=== PATIENT | female | born 1930 | race American Indian/Alaskan Native ===

== ENCOUNTER 2016-10-11 15:40 | Outpatient (CLI) | payer MEDICARE ==
[2016-10-11 16:35] LABS: Blood Urea Nitrogen 12 mg/dL (7-17)
--- NOTE | 2016-10-11 17:35 | Magnetic Resonance Report ---
FINAL REPORT PROCEDURE: MR BRAIN WO/W CON TECHNIQUE: Magnetic resonance imaging of the brain was performed before and after the IV injection of paramagnetic contrast. HISTORY: Right-sided focal numbness. COMPARISON: No prior studies are available for comparison. FINDINGS: Skull base and calvarium: Normal. Paranasal sinuses: The visualized paranasal sinuses are clear. Cerebellum: No evidence of hemorrhage, ischemia or mass . Brainstem: No evidence of hemorrhage, ischemia or mass . Cerebrum: No evidence of hemorrhage, ischemia or mass. Abnormal gradient low signal intensity in the basal ganglia likely calcification. Moderate periventricular white matter low attenuation that does not exhibit abnormal diffusion. Slight abnormal signal intensity in the midbrain/mckinley, best seen on T2 images. No associated abnormal restricted diffusion. Ventricles: Prominence of the ventricles likely in proportion to the degree of atrophy. Pituitary gland and sella: Normal. Globes and orbits: Normal. Vasculature: Normal arterial and venous flow voids. Right vertebral artery slightly hypoplastic. Abnormal enhancement: None. Other: None. IMPRESSION: No MRI restricted diffusion to suggest acute ischemia. Atrophy. Ventricles are prominent but felt to be in proportion to the degree of atrophy. White matter change likely chronic small vessel ischemic change. Also consider demyelination, infectious/inflammatory process, less likely can be seen with migraines. Area of abnormal signal intensity seen in the midbrain/mckinley, most evident on T2 imaging. Consider this could be lacune, on T2 has signal intensity close to CSF. Consider further evaluation and followup as felt to be warranted clinically.
== END 2016-10-11 15:41 | disposition home or self-care (01) ==
LOC: MRI 15:40
PROVIDERS: ATTEND Internal Medicine
DX: R20.2 Paresthesia of skin (principal)
CPT/HCPCS: 36415; 70553; 82565; 84520; A9577

== ENCOUNTER 2016-10-11 17:14 | Emergency (ER) | payer MEDICARE ==
--- NOTE | 2016-10-11 20:48 | Emergency Department Report ---
ED General Adult HPI - General Chief complaint: Neuro Symptoms/Deficit Stated complaint: POSITIVE BRAIN MRI/SENT BY DR PEDERSON Time Seen by Provider: 10/11/16 20:31 Source: patient, family Mode of arrival: Ambulatory Limitations: No Limitations - History of Present Illness Initial comments: This is an 86-year-old female, previously unknown to me. Her primary care doctor is Dr. Rodriguez. Has a past medical history of hypertension, and takes aspirin on a daily basis. She presents to the ER after having an outpatient MRI. The MRI was performed today. MRI demonstrated no acute ischemia. Atrophy is noted. White matter changes were also noted, and consideration for demyelination, infectious, inflammatory changes were also suggested. There is an area of abnormal signal intensity seen in the mid brain/mckinley, more evident on T2 imaging. Consider this could be lacunar. Patient's complaints is intermittent numbness in the right postauricular region , and on the right medial lower extremity from the distal foot and then proximal to the knee. This has been going on for the past few days. It waxes and wanes. It has no exacerbating or relieving factors. The patient denies headache, neck pain, chest pain, abdominal pain, shortness of breath, irritative and obstructive urinary symptoms. There is no extremity weakness. There is no ataxia. Currently patient is asymptomatic. -: Gradual Location: head, right, lower extremity Severity scale (0 -10): 0 Consistency: intermittent Improves with: none Worsens with: none Associated Symptoms: denies: confusion, chest pain, cough, diaphoresis, fever/ chills, headaches, loss of appetite, malaise, nausea/vomiting, rash, seizure, shortness of breath, syncope, weakness - Related Data Home Medications Medication Instructions Recorded Confirmed Last Taken Aspirin 81 mg PO QDAY 10/11/16 10/11/16 Unknown Losartan 50 mg PO QDAY 10/11/16 10/11/16 Unknown Previous Rx's Medication Instructions Recorded Last Taken Type Simvastatin [Zocor TAB] 20 mg PO QHS #30 tablet 10/12/16 Unknown Rx Allergies Allergy/AdvReac Type Severity Reaction Status Date / Time No Known Allergies Allergy Unverified 10/11/16 15:41 ED Review of Systems ROS: Stated complaint: POSITIVE BRAIN MRI/SENT BY DR PEDERSON Other details as noted in HPI Constitutional: denies: malaise Eyes: denies: vision change ENT: denies: epistaxis Respiratory: denies: cough Cardiovascular: denies: chest pain Gastrointestinal: denies: abdominal pain Genitourinary: denies: dysuria Musculoskeletal: denies: arthralgia Skin: denies: lesions Neurological: numbness. denies: weakness ED Past Medical Hx - Past Medical History Hx Hypertension: Yes Hx Diabetes: Yes - Surgical History Past Surgical History?: No - Social History Smoking Status: Current Every Day Smoker Substance Use Type: None - Medications Home Medications: Home Medications Medication Instructions Recorded Confirmed Last Taken Type Aspirin 81 mg PO QDAY 10/11/16 10/11/16 Unknown History Losartan 50 mg PO QDAY 10/11/16 10/11/16 Unknown History Simvastatin [Zocor TAB] 20 mg PO QHS #30 tablet 10/12/16 Unknown Rx ED Physical Exam - General Limitations: No Limitations General appearance: alert, in no apparent distress - Head Head exam: Present: atraumatic, normocephalic - Eye Eye exam: Present: normal appearance, PERRL, EOMI. Absent: nystagmus - ENT ENT exam: Present: normal exam, normal orophraynx, mucous membranes moist, TM's normal bilaterally, normal external ear exam - Neck Neck exam: Present: normal inspection, full ROM. Absent: tenderness, meningismus - Respiratory Respiratory exam: Present: normal lung sounds bilaterally. Absent: respiratory distress, wheezes, rales, rhonchi, stridor, chest wall tenderness - Cardiovascular Cardiovascular Exam: Present: regular rate, normal rhythm, normal heart sounds. Absent: bradycardia, tachycardia, irregular rhythm, systolic murmur, diastolic murmur, rubs, gallop - GI/Abdominal GI/Abdominal exam: Present: soft, normal bowel sounds. Absent: distended, tenderness, guarding, rebound, rigid, pulsatile mass - Extremities Exam Extremities exam: Present: normal inspection, full ROM, normal capillary refill. Absent: tenderness, pedal edema, joint swelling, calf tenderness - Back Exam Back exam: Present: normal inspection, full ROM. Absent: tenderness, CVA tenderness (R), CVA tenderness (L), muscle spasm, paraspinal tenderness, vertebral tenderness - Neurological Exam Neurological exam: Present: alert, oriented X3 (patient is able to add, subtract , multiply. Alert and oriented 3.), normal gait, other (Extraocular movements intact. Tongue midline. No facial droop. Facial sensation intact to light touch in the V1, V2, V3 distribution bilaterally. 5 and 5 strength in 4 extremities.. Sensation is intact to light touch in 4 extremities.). Absent: motor sensory deficit (sensation intact to light touch, pinprick, proprioception and 4 extremity is. Downgoing plantar reflexes bilaterally.) - Psychiatric Psychiatric exam: Present: normal affect, normal mood - Skin Skin exam: Present: warm, dry, intact, normal color. Absent: rash ED Course Vital Signs 10/11/16 10/11/16 10/11/16 17:36 18:33 18:46 Temperature 98.1 F Pulse Rate 73 62 Respiratory 20 20 20 Rate Blood Pressure 171/76 Blood Pressure 147/69 [Left] O2 Sat by Pulse 100 98 98 Oximetry 10/11/16 10/11/16 10/11/16 19:30 21:15 22:00 Temperature Pulse Rate 68 61 60 Respiratory 18 18 18 Rate Blood Pressure Blood Pressure 158/76 167/66 122/60 [Left] O2 Sat by Pulse 96 97 97 Oximetry 10/11/16 10/12/16 23:00 00:36 Temperature Pulse Rate 66 64 Respiratory 18 18 Rate Blood Pressure Blood Pressure 132/64 130/62 [Left] O2 Sat by Pulse 99 97 Oximetry - Reevaluation(s) Reevaluation #1: 10/11/16 21:01 Differential diagnosis: Transient ischemic attack, nonspecific polyneuropathy, multiple sclerosis, pneumonia, urinary tract infection, electrolyte imbalance Assessment and plan: 86-year-old female with nonspecific neurologic symptoms, now resolved. She has a GCS of 15, with an NIH score of 0. Walks with a steady gait. MRI performed earlier on today demonstrates nonspecific findings. Patient has no neck pain or neck stiffness. Clinically not consistent with meningitis or acute infectious process. I don't believe she requires admission to the hospital at this time. Urinalysis, chest x-ray, EKG, laboratory studies pending. We will discuss with neurology. Reevaluation #2: 10/11/16 21:49 case d/w Dr Gaspar of [facility]. he has evaluated the MRI he agrees that the patient most likely had a cva he recommends a ct angio to evaluate for basilar stenosis recommends atorvastatin 40 mg q hs or simvastatin 20 qhs doesnt think patient requires tte or nati at this point thinks this can be done electively as an outpatient 10/11/16 21:51 10/11/16 21:51 Reevaluation #3: 10/12/16 00:44 CT angiograms are essentially negative. Rediscussed with Dr. Baires. Recommends a statin. Recommends target outpatient blood pressure less than 140/ 90. Patient will be discharged with statin therapy. Counseled to follow up with outpatient primary care, palpation neurology. Return precautions are extensively reviewed. ED Medical Decision Making - Lab Data Result diagrams: 10/11/16 20:50 10/11/16 20:50 Vital Signs 10/11/16 10/11/16 10/11/16 17:36 18:33 18:46 Temperature 98.1 F Pulse Rate 73 62 Respiratory 20 20 20 Rate Blood Pressure 171/76 Blood Pressure 147/69 [Left] O2 Sat by Pulse 100 98 98 Oximetry 10/11/16 19:30 Temperature Pulse Rate 68 Respiratory 18 Rate Blood Pressure Blood Pressure 158/76 [Left] O2 Sat by Pulse 96 Oximetry - EKG Data 10/11/16 21:30 Sinus bradycardia, 59 bpm, prolonged QTC of 374 ms, abnormal EKG, not consistent with STEMI, nonspecific T-wave abnormality. - Radiology Data Radiology results: report reviewed interpreted by me: Chest x-ray demonstrates chronic findings. No acute disease. MRI report reviewed and appreciated. Critical care attestation.: If time is entered above; I have spent that time in minutes in the direct care of this critically ill patient, excluding procedure time. ED Disposition Clinical Impression: Numbness, Hypertension Disposition: DISCHARGED TO HOME OR SELFCARE Is pt being admited?: No Does the pt Need Aspirin: No Condition: Good Instructions: Hypertension (ED), Transient Ischemic Attack (ED) Additional Instructions: Continue current outpatient medications. Take the simvastatin medication as directed. Follow-up with the primary care doctor or neurology specialist within the next week. Dr. Lozada is a local neurology specialist. It is very important to closely follow up with outpatient primary care doctor for adjustment of her blood pressure medication. As per the recommendation of Dr. Baires, the [facility], your blood pressure should ideally be less than 140/90. Long-term complications of blood pressure include stroke, heart attack, disability, , paralysis, loss of quality of life. Return to the ER right away with chest pain, shortness of breath, nausea, vomiting, diarrhea, extremity weakness, extremity numbness, change in mental status. Prescriptions: Simvastatin [Zocor TAB] 20 mg PO QHS #30 tablet Referrals: PRIMARY CARE, [Primary Care Provider] - 3-5 Days FRANCY RODRIGUEZ MD [Staff Physician] - 3-5 Days ISIS LOZADA MD [Staff Physician] - 3-5 Days
[2016-10-11 21:10] LABS: Hematocrit 44.1 % (30.3-42.9); Hemoglobin 14.4 gm/dl (10.1-14.3); Mean Corpuscular HGB Conc 33 % (30-34); Mean Corpuscular Hemoglobin 29 pg (28-32); Mean Corpuscular Volume 90 fl (79-97); Platelet Count 195 K/mm3 (140-440); Red Blood Count 4.92 M/mm3 (3.65-5.03); Red Cell Distribution Width 14.3 % (13.2-15.2); White Blood Count 12.4 K/mm3 (4.5-11.0)
[2016-10-11 21:16] LABS: INR 1.02 (0.87-1.13); Partial Thromboplastin Time 24.6 Sec. (24.2-36.6)
[2016-10-11 21:23] LABS: Creatine Kinase MB 6.5 ng/mL (0.0-4.0)
[2016-10-11 21:25] LABS: Blood Urea Nitrogen 12 mg/dL (7-17); Carbon Dioxide 26 mmol/L (22-30); Chloride 103.5 mmol/L (98-107); Creatine Kinase 269 units/L (30-135); Glucose 95 mg/dL (65-100); Sodium 142 mmol/L (137-145)
[2016-10-11 21:28] LABS: Bacteria,Urine 2+ /HPF (Negative); Bilirubin,Urine NEG (Negative); Blood,Urine NEG (Negative); Ketones,Urine NEG (Negative); Leukocyte Esterase,Urine NEG (Negative); Mucus,Urine FEW /HPF; Nitrite,Urine NEG (Negative); Protein,Urine <15 mg/dL mg/dL (Negative); Urobilinogen,Urine < 2.0 mg/dL (<2.0); WBC,Urine < 1.0 /HPF (0.0-6.0)
[2016-10-11 21:30] LABS: Anion Gap 17 mmol/L
[2016-10-11 21:49] LABS: Alanine Aminotransferase 13 units/L (7-56); Albumin 3.4 g/dL (3.9-5); Alkaline Phosphatase 92 units/L (35-129); Bilirubin,Total 0.2 mg/dL (0.1-1.2); Total Protein 6.9 g/dL (6.3-8.2)
[2016-10-11 21:50] LABS: Bilirubin,Direct < 0.2 mg/dL (0-0.2)
--- NOTE | 2016-10-11 21:51 | Admit Criteria Form ---
Admission Criteria Documentation: NEUROLOGY GRG Clinical Indications for Admission to Inpatient Care (Place ' X' for any and all applicable criteria): Hospital admission is needed for appropriate care of the patient because of ANY ONE of the following: [ ]I. New-onset or worsening altered mental status remaining after emergency or observation level care (as appropriate) (9)(10)(11) [ ]II. Severe RIPPLER infections or inflammatory conditions, including ANY ONE of the following(1)(2)(3): [ ]a) Intracranial abscess [ ]b) Spinal abscess or myelitis [ ]c) Tuberculous or other nonbacterial, nonviral RIPPLER infection(8) [ ]III. Encephalitis(1)(2)(3) [ ]IV. Status epilepticus or repetitive seizures not controlled with emergent treatment [A] (7)(8) [ ]V. Transient alteration in consciousness with high-risk etiology; examples include (12)(13): [ ]a) Cardiovascular source [ ]b) Cataplexy [ ]. Cerebral aneurysm requiring ANY ONE of the following(14): [ ]a) IV antihypertensives or vasoactive agents [ ]b) Sedation and analgesia for suspected leak [ ]c) Need for external ventricular drainage and cerebral perfusion pressure monitoring [ ]d) Emergent evaluation to determine need for surgical clipping or endovascular coiling by interventional radiology. If surgery is required ( Also use Craniotomy, Supratentorial, for Surgery of Bleeding Intracranial Aneurysm (for bleeding aneurysm) or Craniotomy, Supratentorial (for nonbleeding aneurysm) as appropriate. [ ]VII. Altered mental status that is severe or persistent(16) [ ]VIII New-onset severe neurologic findings requiring inpatient care; examples include: [ ]a) Papilledema [ ]b) Cerebral edema [ ]c) Mass effect on imaging [ ]IX. New-onset severe neurologic symptom requiring inpatient care indicated by ANY ONE of the following: [ ]a) Aphasia(15) [ ]b) Weakness (grade 3 or less) [ ]c) Paralysis (eg, hemiplegia) [ ]d) Spasticity(16) [ ]e) Ataxia(17) [ ]f) Amnesia(18) [ ]g) Involuntary movements(19) [ ]h) Vertigo [ ]i) Other severe neurologic symptom not treatable at alternative level of care (eg, observation care) [ ]X. Guillain-Columbus syndrome(20) [ ]XI. Myasthenia gravis crisis or inpatient monitoring need as indicated by ANY ONE of the following(21): [ ]a) Inadequate airway protection [ ]b) Respiratory insufficiency requiring intubation or inpatient. monitoring [ ]c) Progressive dysphagia with failure to thrive [ ]d) Intensive treatment (eg, course of plasmapheresis) with inadequate outpatient situation to monitor patients status [ ]XII. Multiple sclerosis or other acute demyelinating disease requiring inpatient care as indicated by ANY ONE of the following (22)(23): [ ]a) Acute severe deterioration requiring inpatient treatment (eg, IV steroids, plasmapheresis, close observation) [ ]b) Acute complication requiring inpatient care (eg, sepsis, severe decubitus, aspiration) [ ]XIII. Intracranial hypertension (eg, pseudotumor cerebri) requiring inpatient care (eg, acute visual loss, inadequate oral intake) (24) [ ]XIV.Parkinson disease requiring inpatient care (Also use Optimal Recovery Care Criteria or General Recovery Criteria as appropriate) indicated by ANY ONE of the following(25): [ ]a) Infection (eg, aspiration pneumonia) not treatable at alternative level of care [ ]b) Volume depletion not responsive to emergency and observation care treatment (as appropriate) [ ]c) Life-threatening agitation or psychotic behavior not treatable on emergency, observation care, or alternative level (eg, residential) basis [ ]d) Severe medication withdrawal effects (eg, freezing, neuroleptic malignant syndrome) not responsive to emergency and observation care treatment (as appropriate) [ ]e) Other severe manifestation not treatable at alternative level of care [ ]XV.Amyotrophic lateral sclerosis with inpatient care needs as indicated by ANY ONE of the following(26): [ ]a) Acute complications requiring inpatient care (Use Optimal Recovery Care Criteria or General Recovery Criteria as appropriate); examples include: [ ]i) Aspiration pneumonia [ ]ii) Sepsis [ ]b) Dehydration or hypovolemia (not responsive to emergency and observation care treatment as appropriate) AND artificial support desired [ ]c) Inadequate airway protection AND artificial support desired [ ]d) Severe ventilatory insufficiency AND artificial support desired [ ]XVI.Severe myopathy, neuropathy, or other neuromuscular disease as indicated by ANY ONE of the following: [ ]a) New-onset severe diffuse weakness (eg, strength 3/5 or less) [ ]b) Severe dysphagia [ ]c) Dyspnea at rest or with minimal exertion (new) [ ]d) Inadequate airway protection [ ]e) Inadequate ventilation as indicated by ANY ONE of the following : [ ]i) Partial pressure of carbon dioxide greater than 44 mm Hg (5.9 kPa) (new) [ ]ii) Reduced peak expiratory flow rate (new) [ ]iii) Vital capacity less than 50% of predicted ( less than 15 mL/kg) [ ]iv) Peak inspiratory force less negative than -30 cm H20 (-2942 Pa) [ ]XVII.Complications of congenital or degenerative disease (eg, infection, seizures, dehydration, injury) not responsive to emergency and observation care treatment (as appropriate ) [C](16)(29)(30) [ ]XVIII.Suspected or confirmed nerve or muscle toxic injury, including ANY ONE of the following: [ ]a) Rhabdomyolysis(31) [ ]b) Botulism(32) [ ]c) Other severe toxin-induced sign or symptom [X ]XIX. Neurologic trauma requiring inpatient treatment (medical) indicated by ANY ONE of the following(33)(34): [ ]a) Vital signs or neurologic signs more frequently than every 4 hours [ ]b) Hyperosmolar therapy [ ]c) Respiratory monitoring [ ]d) Intracranial pressure monitoring and treatment [ ]e) Stabilization and immobilization device placement (eg, braces, body jacket) [ ]f) Intubation & mechanical ventilation for airway protection or therapeutic hyperventilation [ X]g) Other treatment or monitoring needed that requires inpatient level of care [ ]XX.Complications of neurologic devices (eg, ventricular shunt, neurostimulator) requiring ANY ONE of the following(35)(36): [ ]a) IV antibiotics with monitoring while awaiting culture results [ ]b) Monitoring for hydrocephalus [ ]XXI Vasculitis with ANY ONE of the following(4)(5): [ ]a) Altered mental status [ ]b) Psychosis [ ]c) Seizures [ ]XXII. Neurology condition and ALL of the following: [ ]a) Symptom or finding for which emergency and observation care have failed or are not considered appropriate (Use General Criteria: Observation Care as appropriate) [ ]b) Presence of ANY ONE of the following: [ ]i) A General Admission Criteria [ ]ii A Pediatric General Admission Criteria The original [facility] content created by [facility] has been revised. The portions of the content which have been revised are identified through the use of italic text or in bold, and [facility] has neither reviewed nor approved the modified material. All other unmodified content is copyright [facility] Please see references footnoted in the original [facility] edition 2016 Admission Criteria Met: Pending
[2016-10-11] MEDS ORDERED: NACL 0.9% 1000 ML 1,000 ML IV ONE (21:52)
--- NOTE | 2016-10-11 23:56 | Cat Scan Report ---
FINAL REPORT EXAM: CT ANGIO HEAD HISTORY: neuro symptoms TECHNIQUE: Contrast-enhanced spiral CTA of brain and neck. Multiplanar reformations. PRIORS: MRI brain of same date. FINDINGS: Brain: Normal enhancement of the basilar and bilateral internal carotid arteries and their main intracranial branches. Mild, calcific atherosclerotic change in the right cavernous ICA. No abnormal aneurysmal dilatation or significant stenosis. 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 No parenchymal mass, hemorrhage, midline shift or hydrocephalus. No evidence of acute cortical infarct. No abnormal extra-axial fluid or air collections. No pathologic enhancement. Patchy low density in the periventricular and subcortical white matter is nonspecific, but may relate to chronic small vessel ischemic change. Similar change in left pontine region may represent more of same or small and old lacunar infarct changes. Age-related volume loss. Osseous calvarium grossly intact. Neck: Normal enhancement of the bilateral CCAs, ICAs and ECAs. Mild, calcific atherosclerotic change in the bilateral carotid bulbs and proximal ICAs. Tortuous bilateral distal cervical ICAs. No abnormal aneurysmal dilatation, apparent dissection, significant stenosis or occlusion. Vertebral arteries are patent, with mild left-sided dominance. Degenerative change in the cervical spine. IMPRESSION: 1. No acute findings. 2. Chronic ischemic and atrophic changes.
--- NOTE | 2016-10-11 23:58 | Cat Scan Report ---
FINAL REPORT EXAM: CT ANGIO NECK HISTORY: neuro symptoms TECHNIQUE: Contrast-enhanced spiral CTA of neck. Multiplanar reformations. Multiplanar reformations. 100 mL Omnipaque IV. PRIORS: MRI brain of same date. FINDINGS: Neck: Normal enhancement of the bilateral CCAs, ICAs and ECAs. Mild, calcific atherosclerotic change in the bilateral carotid bulbs and proximal ICAs. Tortuous bilateral distal cervical ICAs. No abnormal aneurysmal dilatation, apparent dissection, significant stenosis or occlusion. Vertebral arteries are patent, with mild left-sided dominance. Degenerative change in the cervical spine. IMPRESSION: 1. No acute findings.
[2016-10-12 00:37] VITALS: BP 130/62
--- NOTE | 2016-10-12 08:28 | XRay Report ---
AP CHEST :10/11/16 17:14:00 CLINICAL: Altered mental status. COMPARISON:12/29/08 FINDINGS: Normal heart and pulmonary vasculature. Mild aortic tuberosity. The lungs are normally expanded and clear. Degenerative changes in the spine. IMPRESSION: No acute cardiopulmonary process.
== END 2016-10-12 01:15 | disposition home or self-care (01) ==
LOC: ED 17:14
DX: R20.0 Anesthesia of skin (principal); I10 Essential (primary) hypertension; Z79.82 Long term (current) use of aspirin
CPT/HCPCS: 36415; 70496; 70498; 71010; 80048; 80074; 81001; 82550; 82553; 82962; 85027; 85610; 85730; 93005; 93010; 96360; 96361; 99285; J7030; Q9967

== ENCOUNTER 2016-11-14 23:54 | Emergency (ER) | payer MEDICARE ==
[2016-11-15 00:03] VITALS: BP 149/70
[2016-11-15 00:42] LABS: Basophils % (Auto) 0.2 % (0.0-1.8); Eosinophils % (Auto) 0.2 % (0.0-4.3); Hematocrit 41.9 % (30.3-42.9); Hemoglobin 13.6 gm/dl (10.1-14.3); Mean Corpuscular HGB Conc 32 % (30-34); Mean Corpuscular Hemoglobin 29 pg (28-32); Mean Corpuscular Volume 90 fl (79-97); Platelet Count 167 K/mm3 (140-440); Red Blood Count 4.68 M/mm3 (3.65-5.03); Red Cell Distribution Width 13.7 % (13.2-15.2)
[2016-11-15 01:06] LABS: Anion Gap 18 mmol/L; BUN/Creatinine Ratio 14.44; Blood Urea Nitrogen 13 mg/dL (7-17); Calcium 8.4 mg/dL (8.4-10.2); Carbon Dioxide 24 mmol/L (22-30); Chloride 99.4 mmol/L (98-107); Glucose 147 mg/dL (65-100); Sodium 137 mmol/L (137-145)
--- NOTE | 2016-11-17 19:57 | ED Elopement Review ---
ED Pt Elopement review - Results review Lab results: Laboratory Tests 11/15/16 11/15/16 11/15/16 00:29 00:29 03:01 WBC 18.0 H RBC 4.68 Hgb 13.6 Hct 41.9 MCV 90 MCH 29 MCHC 32 RDW 13.7 Plt Count 167 Lymph % (Auto) 13.8 Pike % (Auto) 8.7 H Eos % (Auto) 0.2 Baso % (Auto) 0.2 Lymph # 2.5 Pike # 1.6 H Eos # 0.0 Baso # 0.0 Seg Neutrophils % 77.1 H Seg Neutrophils # 13.8 H Sodium 137 Potassium 4.0 Chloride 99.4 Carbon Dioxide 24 Anion Gap 18 BUN 13 Creatinine 0.9 Estimated GFR > 60 BUN/Creatinine Ratio 14.44 Glucose 147 H Calcium 8.4 Troponin T < 0.010 - Call Back decision Pt Call Back Decision: Pt to F/U with PMD (patient is follow with the primary care provider for temperature and elevated WBCs patient eloped)
== END 2016-11-15 05:49 | disposition left against medical advice (07) ==
LOC: ED 23:54
DX: R07.9 Chest pain, unspecified (principal); R06.02 Shortness of breath; Z53.21 Procedure and treatment not carried out due to patient leaving prior to being seen by health care provider
CPT/HCPCS: 36415; 80048; 84484; 85025; 93005; 93010

== ENCOUNTER 2017-06-21 05:54 | Day surgery (SDC) | payer MEDICARE ==
[2017-06-21] MEDS ORDERED: TETRACAINE 0.5% OS PRN (06:00)
[2017-06-21] MEDS: MYDRIACYL OS SCH ×3 (06:30→06:40)
[2017-06-21] MEDS: AK-Dilate OS SCH ×3 (06:30→06:40)
[2017-06-21] MEDS: VIGAMOX OS SCH ×3 (06:30→06:40)
--- NOTE | 2017-06-21 07:20 | Anesthesia Consultation ---
Anesthesia Consult and Med Hx Date of service: 06/21/17 - Airway Anesthetic Teeth Evaluation: Edentulous (upper) ROM Head & Neck: Adequate Mental/Hyoid Distance: Adequate Mallampati Class: Class II Intubation Access Assessment: Probably Good - Pulmonary Exam CTA: Yes - Cardiac Exam Cardiac Exam: RRR - Pre-Operative Health Status ASA Pre-Surgery Classification: ASA2 Proposed Anesthetic Plan: General - Pulmonary Hx Smoking: Yes - Cardiovascular System Hx Hypertension: No (high cholesterol )
--- NOTE | 2017-06-21 07:21 | Anesthesia Day of Surgery ---
Anesthesia Day of Surgery - Day of Surgery Patient Examined: Yes Patient H&P Reviewed: Yes Patient is NPO: Yes
[2017-06-21] MEDS ORDERED: DUOVISC VISCOELASTIC INTRAOCULA ONE (07:28)
[2017-06-21] MEDS ORDERED: BSS OS ONE (07:28)
[2017-06-21] MEDS ORDERED: SUBLIMAZE ONE (07:55)
[2017-06-21] MEDS ORDERED: VERSED ONE (07:55)
[2017-06-21] MEDS ORDERED: PRED FORTE 1% OS SCH (10:00)
[2017-06-21 10:08] VITALS: BP 144/65
--- NOTE | 2017-06-21 12:32 | Operative Report ---
Operative Report Operative Report: PATIENT'S NAME: DATE OF : DATE OF SURGERY: 06/21/2017 PREOPERATIVE DIAGNOSIS: Cataract left eye POSTOPERATIVE DIAGNOSIS: Same OPERATIVE PROCEDURE: Phacoemulsification with intraocular lens implantation, left eye SURGEON: Lesa Oliveira M.D. [employer]OUGH AND TRUEING MACHINE OPERATOR SURGEON: Shawn Lens: [id number] 21.0 D ANESTHESIA: Monitored anesthesia care in combination with topical and intracameral anesthesia because of the established specific risk of reflux, arrhythmias, or anxiety attacks associated with ocular manipulation, as well as the difficulty of the seconds handler to manage such potentially catastrophic events while simultaneously attempting to complete the surgical procedure and was deemed necessary for the patient's safety to have an Epic Prelude Analyst present during the procedure whenever possible. An Epic Prelude Analyst was utilized to regulate the intravenous sedation of the patient so the patient was cooperative yet not asleep in order for the patient to successfully maintain fixation of the eye on the operating light of the microscope. COMPLICATIONS: No surgical complications No blood loss. ALLERGIES: No known drug allergies PROGNOSIS: Excellent INDICATIONS FOR SURGERY: The patient is undergoing surgery in the hopes of eliminating or improving these visual difficulties. PROCEDURE: After arriving at the surgery center, the patient was given topical anesthetic and dilating drops, as noted in the record. The patient was then taken into the operating room and given more anesthetic drops. The eyelids , lashes, and lid margins were scrubbed with Betadine solution, and the patient was draped. The Nurse Epic Prelude Analyst administered IV sedation and monitored the patient during the procedure. The eye was then fixated with a 0.12, and a stab incision was made in the peripheral clear cornea into the anterior chamber. This was made on my left side. Viscoelastic was next used to fill the anterior chamber. The eye was once again fixated with the 0.12 forceps and a keratome was used make an incision in clear cornea peripherally on my right hand side temporally. The capsule forceps were used to open the central anterior capsule and then make a continuous round capsulotomy. Hydrodissection was carried out utilizing a cannula and balanced salt solution to delineate the cortical material from the capsule and the nucleus from the cortical material. The phaco tip was introduced into the eye and used to remove the anterior cortical material in the area of the capsulotomy. Then the phaco tip was buried into the nucleus, and a chopping instrument was introduced into the eye and used to provide countertraction in the nucleus between this instrument and the phaco tip fracturing the nucleus. This procedure was repeated multiple times, providing multiple small segments of the lens, and then the phaco tip was used to remove each of these segments. An I/A tip was then used to remove the remaining cortex. The anterior chamber was refilled with viscoelastic. An one-piece, acrylic intraocular lens was then placed into an inserting cartridge. The tip of the inserting cartridge was introduced into the keratome incision and into the anterior chamber. The implant was gently advanced through the cartridge and into the eye, where it unfolded, and both haptics were placed in the capsular bag, where it centered nicely and appeared to be well fixated. After placement of the intraocular lens, the I~and~A handpiece was placed back into the eye and used to remove the viscoelastic, including viscoelastic that was behind the optic of the intraocular lens. The anterior chamber was then filled with balanced salt solution, and hydration of the wound was used to cause swelling of the wound and more appropriate watertight closure. When the wound was found to be firm, the patient was asked to comment on how bright the light was. If there was no light perception at all or if the light was substantially dimmer than during the rest of the surgery, the amount of fluid in the eye was decompressed to lower the intraocular pressure until the patient could see the bright light again. This was done to avoid any damage or decreased blood flow to the optic nerve. MEDICATIONS APPLIED AT END OF SURGERY: One drop of Pred Forte and Vigamox The patient was given a shield to wear at night and was instructed not to rub or push on the eye. DISCHARGE SUMMARY: The patient was released in stable condition. The patient and those with the patient were given a written sheet of postoperative instructions and counseling on any abnormal laboratory studies. The patient is to see us tomorrow for follow-up in the office and is to call immediately for any difficulties. Lesa Oliveira M.D. Date
--- NOTE | 2017-06-21 12:33 | Short Stay Summary ---
Short Stay Documentation Date of service: 06/21/17 - History H&P: obtained from office - Allergies and Medications Current Medications: Allergies No Known Allergies Allergy (Verified 11/14/16 23:58) Home Medications Medication Instructions Recorded Confirmed Last Taken Type Aspirin 81 mg PO QDAY 10/11/16 06/21/17 06/20/17 History Simvastatin [Zocor TAB] 20 mg PO QHS #30 tablet 10/12/16 06/21/17 06/20/17 Rx - Brief post op/procedure progress note Date of procedure: 06/21/17 Pre-op diagnosis: left cataract Post-op diagnosis: same Procedure: Phacoemulsification with intraocular lens insertion left eye Anesthesia: MAC Surgeon: PADMA STEWART Estimated blood loss: none Pathology: none Condition: stable - Disposition Condition at discharge: Good - Discharge Diagnoses (1) Cataract Status: Resolved Qualifiers: Cataract type: age-related Age-related cataract type: nuclear Infantile/ juvenile cataract type: I Traumatic cataract type: T Complicated cataract type: C Secondary cataract type: S Laterality: left Qualified Code(s): H25.12 - Age-related nuclear cataract, left eye Short Stay Discharge Plan Additional Instructions: J CARLOS SURGEON INSTRUCTION SHEET Follow up with: FRANCY RODRIGUEZ MD [Primary Care Provider] - 7 Days Forms: Outpatient Surgery DC Inst.
--- NOTE | 2017-06-21 13:52 | Post Anesthesia Evaluation ---
- Post Anesthesia Evaluation Patient Participated: Yes Airway Patent: Yes Stable Respiratory Function: Yes Nausea/Vomiting: No Temp > 96.8F: Yes Pain Manageable: Yes Adequeate Hydration: Yes Anesthesia Complications: No Block Receding Appropriately: Not Applicable Patient on Ventilator: No
== END 2017-06-21 09:30 ==
LOC: OR 05:54
DX: E11.36 Type 2 diabetes mellitus with diabetic cataract (principal); I10 Essential (primary) hypertension; E78.00 Pure hypercholesterolemia, unspecified; F17.200 Nicotine dependence, unspecified, uncomplicated; Z79.84 Long term (current) use of oral hypoglycemic drugs; Z79.82 Long term (current) use of aspirin; Z79.899 Other long term (current) drug therapy; Z86.73 Personal history of transient ischemic attack (TIA), and cerebral infarction without residual deficits
CPT/HCPCS: 66984; 82962; J2250; J3010; V2632

== ENCOUNTER 2017-07-05 05:56 | Day surgery (SDC) | payer MEDICARE ==
[2017-07-05] MEDS ORDERED: TETRACAINE 0.5% OD PRN (06:00)
[2017-07-05] MEDS: AK-Dilate OD SCH ×3 (06:25→06:35)
[2017-07-05] MEDS: MYDRIACYL OD SCH ×3 (06:25→06:35)
[2017-07-05] MEDS: VIGAMOX OD SCH ×3 (06:25→06:35)
--- NOTE | 2017-07-05 07:05 | Anesthesia Consultation ---
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
--- NOTE | 2017-07-05 07:06 | Anesthesia Day of Surgery ---
Anesthesia Day of Surgery - Day of Surgery Patient Examined: Yes Patient H&P Reviewed: Yes Patient is NPO: Yes
[2017-07-05] MEDS ORDERED: VERSED ONE (07:31)
[2017-07-05] MEDS ORDERED: SUBLIMAZE ONE (07:31)
[2017-07-05] MEDS ORDERED: PRED FORTE 1% ONE (07:58)
[2017-07-05] MEDS ORDERED: PRED FORTE 1% OD SCH (08:25)
[2017-07-05 08:41] VITALS: BP 159/83
--- NOTE | 2017-07-05 09:16 | Operative Report ---
Operative Report Operative Report: PATIENT'S NAME: DATE OF : DATE OF SURGERY: 07/05/2017 PREOPERATIVE DIAGNOSIS: Cataract right eye POSTOPERATIVE DIAGNOSIS: Same OPERATIVE PROCEDURE: Phacoemulsification with intraocular lens implantation, right eye SURGEON: Lesa Oliveira M.D. [employer] SURGEON: Shawn Lens: [id number] 21.5 D ANESTHESIA: Monitored anesthesia care in combination with topical and intracameral anesthesia because of the established specific risk of reflux, arrhythmias, or anxiety attacks associated with ocular manipulation, as well as the difficulty of the armature winder repair to manage such potentially catastrophic events while simultaneously attempting to complete the surgical procedure and was deemed necessary for the patient's safety to have an Agent Contract Clerk present during the procedure whenever possible. An Agent Contract Clerk was utilized to regulate the intravenous sedation of the patient so the patient was cooperative yet not asleep in order for the patient to successfully maintain fixation of the eye on the operating light of the microscope. COMPLICATIONS: No surgical complications No blood loss. ALLERGIES: No known drug allergies PROGNOSIS: Excellent INDICATIONS FOR SURGERY: The patient is undergoing surgery in the hopes of eliminating or improving these visual difficulties. PROCEDURE: After arriving at the surgery center, the patient was given topical anesthetic and dilating drops, as noted in the record. The patient was then taken into the operating room and given more anesthetic drops. The eyelids , lashes, and lid margins were scrubbed with Betadine solution, and the patient was draped. The Nurse Agent Contract Clerk administered IV sedation and monitored the patient during the procedure. The eye was then fixated with a 0.12, and a stab incision was made in the peripheral clear cornea into the anterior chamber. This was made on my left side. Viscoelastic was next used to fill the anterior chamber. The eye was once again fixated with the 0.12 forceps and a keratome was used make an incision in clear cornea peripherally on my right hand side temporally. The capsule forceps were used to open the central anterior capsule and then make a continuous round capsulotomy. Hydrodissection was carried out utilizing a cannula and balanced salt solution to delineate the cortical material from the capsule and the nucleus from the cortical material. The phaco tip was introduced into the eye and used to remove the anterior cortical material in the area of the capsulotomy. Then the phaco tip was buried into the nucleus, and a chopping instrument was introduced into the eye and used to provide countertraction in the nucleus between this instrument and the phaco tip fracturing the nucleus. This procedure was repeated multiple times, providing multiple small segments of the lens, and then the phaco tip was used to remove each of these segments. An I/A tip was then used to remove the remaining cortex. The anterior chamber was refilled with viscoelastic. An one-piece, acrylic intraocular lens was then placed into an inserting cartridge. The tip of the inserting cartridge was introduced into the keratome incision and into the anterior chamber. The implant was gently advanced through the cartridge and into the eye, where it unfolded, and both haptics were placed in the capsular bag, where it centered nicely and appeared to be well fixated. After placement of the intraocular lens, the I~and~A handpiece was placed back into the eye and used to remove the viscoelastic, including viscoelastic that was behind the optic of the intraocular lens. The anterior chamber was then filled with balanced salt solution, and hydration of the wound was used to cause swelling of the wound and more appropriate watertight closure. When the wound was found to be firm, the patient was asked to comment on how bright the light was. If there was no light perception at all or if the light was substantially dimmer than during the rest of the surgery, the amount of fluid in the eye was decompressed to lower the intraocular pressure until the patient could see the bright light again. This was done to avoid any damage or decreased blood flow to the optic nerve. MEDICATIONS APPLIED AT END OF SURGERY: One drop of Pred Forte and Vigamox The patient was given a shield to wear at night and was instructed not to rub or push on the eye. DISCHARGE SUMMARY: The patient was released in stable condition. The patient and those with the patient were given a written sheet of postoperative instructions and counseling on any abnormal laboratory studies. The patient is to see us tomorrow for follow-up in the office and is to call immediately for any difficulties. Lesa Oliveira M.D. Date
--- NOTE | 2017-07-05 09:17 | Short Stay Summary ---
Short Stay Documentation Date of service: 07/05/17 - History H&P: obtained from office - Allergies and Medications Current Medications: Allergies No Known Allergies Allergy (Verified 11/14/16 23:58) Home Medications Medication Instructions Recorded Confirmed Last Taken Type Aspirin 81 mg PO QDAY 10/11/16 06/29/17 07/04/17 History AtorvaSTATin [Lipitor] 10 mg PO QHS 06/29/17 06/29/17 07/04/17 History Ciprofloxacin 0.2%(Nf) 1 each OS QID 06/29/17 06/29/17 07/04/17 History [Ciprofloxacin OTIC] Nepafenac [Ilevro 0.3%] 1 drop OS DAILY 06/29/17 06/29/17 07/04/17 History prednisoLONE ACETATE 1% [Pred 1 drops OU TID 06/29/17 06/29/17 07/04/17 History Forte 1%] Active Medications Moxifloxacin HCl (Vigamox) 1 drops OD Q5MIN ESTHELA Stop: 07/07/17 06:01 Last Admin: 07/05/17 06:35 Dose: 1 drops Phenylephrine HCl (Ak-Dilate) 1 drops OD Q5MIN ESTHELA Stop: 07/07/17 06:01 Last Admin: 07/05/17 06:35 Dose: 1 drops Prednisolone Acetate (Pred Forte 1%) 1 drops OD QID ESTHELA Stop: 07/05/17 23:59 Last Admin: 07/05/17 08:28 Dose: 1 drops Tetracaine HCl (Tetracaine 0.5%) 1 drops OD Q5M PRN PRN Reason: Analgesia Last Admin: 07/05/17 06:25 Dose: 1 drops Tropicamide (Mydriacyl) 1 drops OD Q5MIN ESTHELA Stop: 07/07/17 06:01 Last Admin: 07/05/17 06:35 Dose: 1 drops - Brief post op/procedure progress note Date of procedure: 07/05/17 Pre-op diagnosis: right cataract Post-op diagnosis: same Procedure: Phacoemulsification with intraocular lens insertion right eye Anesthesia: MAC Surgeon: PADMA STEWART Estimated blood loss: none Pathology: none Condition: stable - Disposition Condition at discharge: Good Disposition: DC-01 TO HOME OR SELFCARE - Discharge Diagnoses (1) Cataract Status: Resolved Qualifiers: Cataract type: age-related Age-related cataract type: nuclear Infantile/ juvenile cataract type: I Traumatic cataract type: T Complicated cataract type: C Secondary cataract type: S Laterality: right Qualified Code(s): H25.11 - Age-related nuclear cataract, right eye Short Stay Discharge Plan Additional Instructions: FOLLOW SURGEON INSTRUCTION SHEETS. Follow up with: FRANCY RODRIGUEZ MD [Primary Care Provider] - 7 Days Forms: Outpatient Surgery DC Inst.
== END 2017-07-05 09:00 | disposition home or self-care (01) ==
LOC: OR 05:56
DX: E11.36 Type 2 diabetes mellitus with diabetic cataract (principal); I10 Essential (primary) hypertension; F17.200 Nicotine dependence, unspecified, uncomplicated; Z79.84 Long term (current) use of oral hypoglycemic drugs; Z79.82 Long term (current) use of aspirin; Z79.899 Other long term (current) drug therapy
CPT/HCPCS: 66984; 82962; J2250; J3010; V2632

== ENCOUNTER → 2018-05-22 | Outpatient (CLI) | payer MEDICARE ==
[2018-05-22 16:50] LABS: Blood Urea Nitrogen 9 mg/dL (7-17)
--- NOTE | 2018-05-22 23:38 | Magnetic Resonance Report ---
FINAL REPORT PROCEDURE: MR BRAIN WO/W CON TECHNIQUE: Magnetic resonance imaging of the brain was performed before and after the IV injection of paramagnetic contrast. HISTORY: HEADACHE COMPARISON: 10/11/2016 FINDINGS: Diffusion-weighted images failed to demonstrate any hyperintense signal abnormalities. Cerebral sulci and ventricles are prominent consistent with cerebral atrophy appropriate for patient's age. Moderate degree bilateral cerebral white matter nonspecific hyperintense signal abnormalities are noted on T2 and FLAIR images most likely representing chronic microangiopathy. An intra-axial or extra-axial hemorrhage or mass lesion is not identified. Posterior fossa structures are unremarkable. Bilateral internal artery canals are well maintained. Postcontrast images failed to demonstrate any abnormal areas of contrast enhancement. There is extension of the CSF space into the pituitary fossa with flattening of the pituitary gland against the floor consistent with partial empty sella. 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
== END | disposition home or self-care (01) ==
LOC: MRI 15:54
PROVIDERS: ATTEND Internal Medicine
DX: R51 Headache (principal); I10 Essential (primary) hypertension; E11.9 Type 2 diabetes mellitus without complications; Z87.891 Personal history of nicotine dependence
CPT/HCPCS: 36415; 70553; 82565; 84520; A9577